=== PATIENT | female | born 1950 | race Caucasian/White ===

== ENCOUNTER → 2018-01-30 14:30 | Outpatient (CLI) | payer MEDICARE, OTHER, SELFPAY ==
--- NOTE | 2018-01-30 | DI.MG.S_ITS ---
BILATERAL DIGITAL SCREENING MAMMOGRAM 3D/2D WITH CAD: 01/30/2018 CLINICAL: Routine screening. Family history of breast cancer. Comparison is made to exams dated: 01/13/2017 mammogram, 02/05/2016 mammogram, and 02/03/2015 mammogram - [facility]. There are scattered fibroglandular elements in both breasts. Current study was also evaluated with a Computer Aided Detection (CAD) system. No significant masses, calcifications, or other findings are seen in either breast. There has been no significant interval change. IMPRESSION: NEGATIVE There is no mammographic evidence of malignancy. A 1 year screening mammogram is recommended.(01/31/2019) This exam was interpreted at Station ID: [id number]. NOTE: For mammograms, a report in lay terms will be sent to the patient. Approximately 15% of breast malignancies will not be visualized mammographically. In the management of a palpable breast mass, a negative mammogram must not discourage biopsy of a clinically suspicious lesion. Electronically Signed By: Saloni helm/bert:01/30/2018 15:56:16 letter sent: Normal Exam ACR BI-RADS Category 1: Negative [id number]
== END ==
PROVIDERS: PCP Nurse Practitioner; Visit Provider Family Medicine
DX: Z12.31 Encounter for screening mammogram for malignant neoplasm of breast (principal); Z80.3 Family history of malignant neoplasm of breast
CPT/HCPCS: 77063; 77067

== ENCOUNTER 2018-02-05 09:16 | Emergency (ER) | payer MEDICARE, OTHER, SELFPAY ==
[2018-02-05 09:22] VITALS: BP 205/66; PULSE 67; RESP 15; TEMP 36.5; O2SAT 98; BMI 24.0
--- NOTE | 2018-02-05 09:31 | ED.UPPEXIN ---
HPI - Extremity Injury (Upper) General Chief Complaint: Extremity Injury, Upper Stated Complaint: RIGHT ARM PAIN , HEMATOMA LT ARM Time Seen by Provider: 02/05/18 09:23 Source: patient Mode of arrival: ambulatory Limitations: no limitations History of Present Illness HPI narrative: Patient is a 67-year-old female who presents with left arm swelling. She says it has been there for about a month but it seemed to progressively gotten worse and got up her arm. She nursed in her hand initially she said all the wrinkles in her hand were gone and her skin looks good. But she continues to have swelling has not cause her much pain however last evening her upper arm was causing her lot of pain and she has more swelling. She has no numbness or tingling. She denies any chest pain. No injury. She is also noted to be quite hypertensive. She has had difficulty controlling her blood pressure and been on and off medications. She is recently back on lisinopril and hydrochlorothiazide. She increased her dose of lisinopril this morning she normally takes 5 mg but due to her elevated blood pressure he had a she does 10 mg. MD complaint: injury to: left Related Data Home Medications Medication Instructions Recorded Confirmed ASCORBIC ACID (#VITAMIN C) 1,500 mg PO Q DAY #0 tab 12/07/10 ASPIRIN (#ASPIRIN) 81 mg PO Q DAY #0 12/07/10 CHOLECALCIFEROL (VITAMIN D) 2,000 iu PO Q DAY #0 12/07/10 IBUPROFEN (#IBUPROFEN) 200 mg PO PRN #0 12/07/10 SELENIUM (#SELENIUM) 200 mcg PO Q DAY #0 12/07/10 Vitamin B Complex4 (#B COMPLEX) 1 tab PO Q DAY #0 12/07/10 [lysine] QDAY #0 12/07/10 COENZYME Q10/VITAMIN E (CO-Q-10 200 mg PO QDAY #0 02/02/13 100mg) Diphenhydramine Hydrochloride 25 mg PO HS #2 02/02/13 (BENADRYL) Glucosamine Sulfate (GLUCOSAMINE) 1,500 mg PO QDAY #0 02/02/13 [SAFFLOWER CLA] 3.2 mg Q DAY #0 04/29/16 [RED YEAST ] QDAY #0 12/10/16 hydralazine 37.5 mg PO QDAY #0 12/10/16 Previous Rx's Medication Instructions Recorded eszopiclone [Lunesta] 3 mg PO HSP PRN #30 tab 01/27/17 hydrochlorothiazide 25 mg PO BID #60 tab 01/27/17 Allergies Allergy/AdvReac Type Severity Reaction Status Date / Time zolpidem AdvReac Mild AGITATION Verified 02/05/18 09:22 verapamil AdvReac Unknown PAC'S Verified 02/05/18 09:22 Review of Systems Review of Systems All systems reviewed & are unremarkable except as noted in HPI and below Constitutional Denies chills, Denies fever(s), Denies lethargy and Denies weakness ENT Ears, Nose, Mouth, and Throat: Denies vertigo and Denies dizziness Cardiovascular Denies chest pain, Denies syncope, Denies irregular heart rhythm, Denies lightheadedness, Denies palpitations, Denies dyspnea, Denies dyspnea on exertion and Denies orthopnea Respiratory Denies cough, Denies dyspnea, Denies dyspnea on exertion and Denies wheezing Gastrointestinal Gastrointestinal: Denies abdominal pain, Denies change in bowel habits, Denies diarrhea, Denies nausea and Denies vomiting Genitourinary Denies hematuria, Denies flank pain, Denies urinary incontinence and Denies urinary urgency Musculoskeletal Reports as per HPI Integumentary/Breasts Denies pruritus, Denies erythema, Denies rash and Denies wounds Neurologic Denies vertigo, Denies dizziness, Denies syncope and Denies weakness Endocrine Denies palpitations Allergic/Immunologic Denies wheezing PFSH Medical History Hypertension (Acute) Surgical History Status post colonoscopy Family History Father Hypertension Mother Age: 90 Hypertension A-fib Pacemaker Social History Smoking Status: Never smoker alcohol intake: never substance use type: does not use Exam Initial Vital Signs Initial Vital Signs: Vital Signs Temperature 97.7 F 02/05/18 09:22 Pulse Rate 67 02/05/18 09:22 Respiratory Rate 15 02/05/18 09:22 Blood Pressure 205/66 H 02/05/18 09:22 Pulse Oximetry 98 02/05/18 09:22 GENERAL: Well-appearing, well-nourished and in no acute distress. HEENT: Head atraumatic,EOMI, pupils reactive, face symmetric CARDIOVASCULAR: Regular rate and rhythm without murmurs, rubs or gallops. RESPIRATORY: Breath sounds equal bilaterally, no wheezes rales or rhonchi. ABDOMEN: Soft, nontender. Normoactive bowel sounds all 4 quadrants. No guarding or rebound. EXTREMITIES: Normal range of motion, no clubbing or edema. Neurovascularly intact Left arm is swollen compared to the right arm. There is no erythema a distal radial pulse intact. Radial median and nerve intact. Sensation intact. NEUROLOGICAL: Alert and oriented x4.Normal gait and speech. Cranial nerves II through XII grossly intact. SKIN: Warm, dry, no laceration, no petechiae, no rashes or lesions. Course Orders Ordered: ED Orders 02/05/18 09:42 US periph venous up extrem lt Stat 02/05/18 09:43 XR chest 1V Stat EKG-12 Lead Stat 02/05/18 10:10 Complete Blood Count AUTO DIFF Stat Comprehensive Metabolic Panel Stat D Dimer Stat Lipase Stat Partial Thromboplastin Time Stat Prothrombin Time INR Stat Troponin & CK Cardiac Panel Stat Vital Signs - 8 hr 02/05/18 09:22 02/05/18 10:15 02/05/18 10:30 Temperature 97.7 F Pulse Rate 67 60 59 L Respiratory Rate 15 18 18 Blood Pressure 205/66 H Blood Pressure [Right Arm] 174/60 H 168/64 H Pulse Oximetry 98 99 100 02/05/18 11:30 Temperature Pulse Rate 62 Respiratory Rate 17 Blood Pressure Blood Pressure [Right Arm] 163/65 H Pulse Oximetry 99 MDM - Extremity Injury (Upper) Lab Data Attestation: I reviewed the patient's lab results. Result diagrams: 02/05/18 10:10 02/05/18 10:10 Lab Results 02/05/18 02/05/18 02/05/18 Range/Units 10:10 10:10 10:10 WBC 5.5 (4.5-11.0) X10^3/uL RBC 4.80 (4.0-5.2) X10^6/uL Hgb 12.8 (12.0-16.0) g/dL Hct 38.5 (36-46) % MCV 80.1 (80-100) fL MCH 26.7 (26-34) PG MCHC 33.3 (30-36) % RDW 12.8 (11.6-14.8) % Plt Count 250 (150-400) X10^3/uL Neut % (Auto) 68.9 (50-75) % Lymph % (Auto) 16.5 L (25-40) % [place] % (Auto) 7.9 (3-14) % Eos % (Auto) 5.6 H (2-4) % Baso % (Auto) 1.1 (0-2) % Neut # (Auto) 3800 (6476-0611) /uL PT 11.3 (10.1-12.7) SECONDS INR 1.0 (0.9-1.3) APTT 29 (26.4-36.2) SECONDS D-Dimer < 200 (<230) ng/mL Sodium 144 (137-145) mmol/L Potassium 4.1 (3.4-5.1) mmol/L Chloride 101 (98-107) mmol/L Carbon Dioxide 33 H (22-32) mmol/L BUN 29 H (7-17) mg/dL Creatinine 0.70 (0.52-1.04) mg/dL Estimated GFR > 60.0 (>60) mL/min BUN/Creatinine Ratio 41.4 H (6-22) Glucose 82 (80-110) mg/dL Calcium 9.3 (8.4-10.2) mg/dL Total Bilirubin 0.6 (0.2-1.3) mg/dL AST 32 (14-36) IU/L ALT 34 (9-52) IU/L Alkaline Phosphatase 62 (38-126) U/L Total Creatine Kinase 22 L (30-135) U/L CK-MB (CK-2) TNP CK-MB (CK-2) Rel Index TNP Troponin I < 0.012 (0.01-0.034) ng/mL Total Protein 6.9 (6.3-8.2) g/dL Albumin 4.2 (3.5-5.0) g/dL Globulin 2.7 (1.7-4.1) g/dL Albumin/Globulin Ratio 1.6 (1.0-2.8) Lipase 112 (23-300) U/L ECG Data Attestation: I personally reviewed and interpreted this ECG as follows: Prior ECG tracings: not available for review Interpretation: Normal sinus rhythm rate [address] changes no T-wave inversions, no priors to compare NM interval 230 QRS 91 QTC 429 MDM Narrative Medical decision making narrative: Patient has a negative ultrasound and negative D-dimer unlikely to be a blood clot. Strong radial pulse with good cap refill. Blood work within normal limits Chest x-ray and EKG normal. No sign of infection. Possible overuse causing swelling and inflammation. Recommend resting elevating and icing at this time with possible outpatient workup. Discharge Plan Departure Patient Disposition: Home Clinical Impression: Left arm swelling Discharge Date/Time: 02/05/18 12:05 Interventions: ED Discharge Assessment Last Done: 02/05/18 12:06 Instructions: DI for Peripheral Edema, Unilateral Activity Restrictions/Additional Instructions: *You have been diagnosed with left arm swelling *What to do: No evidence of blood clot, blood work within normal limits. Possible over worker strain. Recommend elevating icing. May require further outpatient testing. *Continue to take medications as directed Motrin 600 mg every 6-8 hours if needed for pain and swelling take only for a week *Follow up with your primary care provider in 2-3 days *Return to ER if you should have increasing swelling, numbness, tingling, shortness of breath, chest or any new, worsening or concerning symptoms Prescriptions: No Action ASPIRIN (#ASPIRIN) 81 mg PO Q DAY Qty: 0 RF: 0 CHOLECALCIFEROL (VITAMIN D) 2,000 iu PO Q DAY Qty: 0 RF: 0 ASCORBIC ACID (#VITAMIN C) 1,500 mg PO Q DAY Qty: 0 RF: 0 Vitamin B Complex4 (#B COMPLEX) 1 tab PO Q DAY Qty: 0 RF: 0 [lysine] QDAY Qty: 0 RF: 0 SELENIUM (#SELENIUM) 200 mcg PO Q DAY Qty: 0 RF: 0 IBUPROFEN (#IBUPROFEN) 200 mg PO PRN Qty: 0 RF: 0 Diphenhydramine Hydrochloride (BENADRYL) 25 mg PO HS Qty: 2 RF: 0 COENZYME Q10/VITAMIN E (CO-Q-10 100mg) 200 mg PO QDAY Qty: 0 RF: 0 Glucosamine Sulfate (GLUCOSAMINE) 1,500 mg PO QDAY Qty: 0 RF: 0 [SAFFLOWER CLA] 3.2 mg Q DAY Qty: 0 RF: 0 [RED YEAST ] QDAY Qty: 0 RF: 0 hydralazine 25 MG tablet 37.5 mg PO QDAY Qty: 0 RF: 0 eszopiclone [Lunesta] 3 MG tablet 3 mg PO HSP PRNQty: 30 RF: 1 hydrochlorothiazide 25 MG tablet 25 mg PO BID Qty: 60 RF: 4 Referrals: Yessica Hdez ARNP [Primary Care Provider] -
--- NOTE | 2018-02-05 09:42 | DI.US.S_ITS ---
PROCEDURE: US PERIPH VENOUS UP EXTREM LT INDICATIONS: swelling TECHNIQUE: Real-time imaging, as well as color and pulse Doppler interrogation, was performed of the left upper extremity deep veins from the inferior neck to the antecubital fossa. COMPARISON: None. FINDINGS: The internal jugular vein, visualized portions of the subclavian vein, axillary, and brachial veins are free of intraluminal thrombus. Where physically possible, the veins are normally compressible. Color and pulse Doppler demonstrate normal intraluminal flow, with expected phasicity and pulsatility. Additional scanning of the cephalic and basilic veins of the superficial system demonstrate normal compressibility, without thrombus. IMPRESSION: No ultrasound evidence of thrombosis of the imaged venous structures of the left upper extremity. Dictated by: Armando Pedersen M.D. on 02/05/2018 at 11:14 Approved by: Armando Pedersen M.D. on 02/05/2018 at 11:18
--- NOTE | 2018-02-05 09:43 | DI.RAD.S_ITS ---
PROCEDURE: XR CHEST 1V INDICATIONS: chest pain TECHNIQUE: One view of the chest was acquired. COMPARISON: None. FINDINGS: Surgical changes and devices: Cardiac pacer device with leads projecting the right atrium and right ventricle. Lungs and pleura: No pleural effusions or pneumothorax. Lungs are clear. Mediastinum: Mediastinal contours appear normal. Heart size is normal. Bones and chest wall: No suspicious bony lesions. Overlying soft tissues appear unremarkable. IMPRESSION: No acute cardiopulmonary disease. Dictated by: Armando Pedersen M.D. on 02/05/2018 at 10:02 Approved by: Armando Pedersen M.D. on 02/05/2018 at 10:04
[2018-02-05 10:15] VITALS: BP 174/60; PULSE 60; RESP 18; O2SAT 99
[2018-02-05 10:16] LABS: Add Manual Diff / Slide Review NO; Basophils Percent Auto 1.1 % (0-2); Eosinophils Percent Auto 5.6 % (2-4); Hematocrit 38.5 % (36-46); Hemoglobin 12.8 g/dL (12.0-16.0); Lymphocytes Percent Auto 16.5 % (25-40); Mean Corpuscular HGB Conc 33.3 % (30-36); Mean Corpuscular Hemoglobin 26.7 PG (26-34); Mean Corpuscular Volume 80.1 fL (80-100); Monocytes Percent Auto 7.9 % (3-14); Neutrophils Absolute Auto 3800 /uL (3000-5900); Neutrophils Percent Auto 68.9 % (50-75); Platelet Count 250 X10^3/uL (150-400); Red Cell Distribution Width 12.8 % (11.6-14.8); White Blood Cell Count 5.5 X10^3/uL (4.5-11.0)
[2018-02-05 10:20] LABS: HEMOLYSIS < 15 (0-50)
[2018-02-05 10:22] LABS: Prothrombin Time 11.3 SECONDS (10.1-12.7)
[2018-02-05 10:24] LABS: PTT Partial Thromboplastin Tim 29 SECONDS (26.4-36.2)
[2018-02-05 10:26] LABS: Alanine Aminotransferase 34 IU/L (9-52); Albumin 4.2 g/dL (3.5-5.0); Albumin Globulin Ratio 1.6 (1.0-2.8); Alkaline Phosphatase 62 U/L (38-126); Aspartate Aminotransferase 32 IU/L (14-36); BUN Creatinine Ratio 41.4 (6-22); Bilirubin Total 0.6 mg/dL (0.2-1.3); Blood Urea Nitrogen 29 mg/dL (7-17); Calcium 9.3 mg/dL (8.4-10.2); Carbon Dioxide 33 mmol/L (22-32); Chloride 101 mmol/L (98-107); Creatine Kinase 22 U/L (30-135); Estimated Glomerular Filt Rate > 60.0 mL/min (>60); Globulin 2.7 g/dL (1.7-4.1); Glucose 82 mg/dL (80-110); Lipase 112 U/L (23-300); Potassium 4.1 mmol/L (3.4-5.1); Sodium 144 mmol/L (137-145); Total Protein 6.9 g/dL (6.3-8.2)
[2018-02-05 10:30] VITALS: BP 168/64; PULSE 59; PULSE 60; RESP 16; RESP 18; O2SAT 100; O2SAT 99
[2018-02-05 10:39] LABS: D Dimer < 200 ng/mL (<230); Troponin I < 0.012 ng/mL (0.01-0.034)
[2018-02-05 11:30] VITALS: BP 163/65; PULSE 62; RESP 17; O2SAT 99
== END 2018-02-05 12:05 | disposition home or self-care (01) ==
PROVIDERS: Emergency Provider Emergency Medicine; PCP Nurse Practitioner
DX: M79.89 Other specified soft tissue disorders (principal)
CPT/HCPCS: 36591; 71045; 80053; 82550; 83690; 84484; 85025; 85379; 85610; 85730; 93005; 93971; 99283; 99285

== ENCOUNTER → 2019-02-01 15:36 | Outpatient (CLI) | payer MEDICARE, OTHER, SELFPAY | PROVIDERS: PCP Nurse Practitioner; Visit Provider Nurse Practitioner | DX: Z12.31 Encounter for screening mammogram for malignant neoplasm of breast (principal); Z53.9 Procedure and treatment not carried out, unspecified reason | CPT/HCPCS: 77063; 77067 ==

== ENCOUNTER 2019-02-03 10:15 | Emergency (ER) | payer MEDICARE, OTHER, SELFPAY ==
[2019-02-03] VITALS (8 sets, daily range): BP systolic 129–191; BP diastolic 47–66; PULSE 59–60; RESP 15–21; TEMP 36.7; O2SAT 97–100
--- NOTE | 2019-02-03 10:19 | DI.RAD.S_ITS ---
PROCEDURE: XR CHEST 1V INDICATIONS: chest pain TECHNIQUE: One view of the chest was acquired. COMPARISON: [facility], CR, XR CHEST 1V, 02/05/2018, 9:50. FINDINGS: Surgical changes and devices: There is a left chest wall dual-lead pacemaker redemonstrated. Lungs and pleura: Visualized lungs are clear. No pleural effusions or pneumothorax. Mediastinum: Mediastinal contours appear normal. Heart size is normal. Bones and chest wall: No suspicious bony lesions. Overlying soft tissues appear unremarkable. IMPRESSION: 1. No acute cardiopulmonary disease. Dictated by: Lloyd Zuñiga M.D. on 02/03/2019 at 9:59 Approved by: Lloyd Zuñiga M.D. on 02/03/2019 at 9:59
--- NOTE | 2019-02-03 10:34 | ED.CHESTPAIN ---
HPI - Chest Pain General Chief Complaint: Chest Pain Stated Complaint: chest pain, now resolved. Time Seen by Provider: 02/03/19 10:20 Source: patient Mode of arrival: Ambulatory Limitations: no limitations History of Present Illness HPI narrative: Patient is a 68-year-old female who has a history of hypertension and pacemaker recently new diagnosis of atrial fibrillation. Today she presents now with resolved chest pain. She said last evening she noted some right-sided chest pain lasted about an hour or so on has completely resolved. She did not notice it this morning. She has no shortness of breath no heart palpitations. 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 She started Eliquis about 10 days ago. Her blood pressure has been difficult to control and she is only tolerated certain medications. She was was started on clonidine 0.1 mg and that has increased to 0.2 mg she is on patches and hydrochlorothiazide. She denies any headache. MD complaint: chest pain Onset: during rest Pain location: substernal Related Data Home Medications Medication Instructions Recorded Confirmed ASCORBIC ACID (#VITAMIN C) 1,500 mg PO Q DAY #0 tab 12/07/10 08/21/18 ASPIRIN (#ASPIRIN) 81 mg PO Q DAY #0 12/07/10 08/21/18 CHOLECALCIFEROL (VITAMIN D) 2,000 iu PO Q DAY #0 12/07/10 08/21/18 IBUPROFEN (#IBUPROFEN) 200 mg PO PRN #0 12/07/10 08/21/18 Vitamin B Complex4 (#B COMPLEX) 1 tab PO Q DAY #0 12/07/10 08/21/18 [lysine] QDAY #0 12/07/10 08/21/18 Diphenhydramine Hydrochloride 25 mg PO HS #2 02/02/13 08/21/18 (BENADRYL) Glucosamine Sulfate (GLUCOSAMINE) 1,500 mg PO QDAY #0 02/02/13 08/21/18 [RED YEAST ] QDAY #0 12/10/16 08/21/18 flaxseed oil MISC 08/21/18 08/21/18 lisinopril 20 1 tab PO DAILY 08/21/18 08/21/18 mg-hydrochlorothiazide 25 mg tablet omega-3 fatty acids 1,000 mg 2,000 mg PO DAILY 08/21/18 08/21/18 capsule soy isofla-blk cohosh-mag bark 155 cap PO cap 10/05/18 10/05/18 mg capsule Allergies Allergy/AdvReac Type Severity Reaction Status Date / Time zolpidem AdvReac Mild AGITATION Verified 08/21/18 15:41 verapamil AdvReac Unknown PAC'S Verified 08/21/18 15:41 Review of Systems Review of Systems Narrative: GENERAL: Denies chills, fatigue, malaise, fever, sweats, travel HEENT: Denies sinus pain, ear pain, sore throat, difficulty swallowing, neck pain RESPIRATORY: Denies dyspnea, cough, wheezing, hemoptysis, sputum. CARDIOVASCULAR: See HPI GASTROINTESTINAL: Denies nausea, vomiting, abdominal pain, diarrhea, constipation, melena. : Denies dysuria, frequency, incontinence, hematuria, urinary retention, flank pain. MUSCULOSKELETAL: Denies weakness, joint pain, or bony pain SKIN: No rash, no erythema, no pruritus NEUROLOGIC: Denies weakness, dizziness, headache, numbness, change in speech, confusion PSYCHIATRIC: No concerning psychosocial issues. 12 point review of systems is negative except for those stated above and HPI PFSH Medical History Atrial fibrillation (Acute) Hypertension (Acute) Pacemaker (Acute) Surgical History Status post colonoscopy Family History Father Hypertension Mother Age: 91 Hypertension A-fib Pacemaker Social History Smoking Status: Never smoker alcohol intake: never substance use type: does not use Family History Father Hypertension Mother Age: 91 Hypertension A-fib Pacemaker Social History Smoking Status: Never smoker alcohol intake: never substance use type: does not use Exam Initial Vital Signs Initial Vital Signs: Vital Signs Temperature 98.1 F 02/03/19 10:16 Pulse Rate 60 02/03/19 10:16 Respiratory Rate 18 02/03/19 10:16 Blood Pressure 191/49 H 02/03/19 10:16 Pulse Oximetry 98 02/03/19 10:16 GENERAL: Well-appearing, well-nourished and in no acute distress. HEENT: Head atraumatic,EOMI, pupils reactive, face symmetric, moist mucous membranes CARDIOVASCULAR: Regular rate and rhythm without murmurs, rubs or gallops. RESPIRATORY: Breath sounds equal bilaterally, no wheezes rales or rhonchi. ABDOMEN: Soft, nontender. Normoactive bowel sounds all 4 quadrants. No guarding or rebound. : No CVA tenderness EXTREMITIES: Normal range of motion, no clubbing or edema. Neurovascularly intact NEUROLOGICAL: Alert and oriented x4.Normal gait and speech. SKIN: Warm, dry, no laceration, no petechiae, no rashes or lesions. Scores HEART Score Heart Score history: Slightly Suspicious Heart Score EKG: Normal Heart Score Age: > or = 65 years old Heart Score risk factors: 1-2 risk factors Heart Score troponin: < or = to normal limit Heart Score Total: 3 Course Orders Ordered: ED Orders 02/03/19 10:19 XR chest 1V Stat EKG-12 Lead Stat 02/03/19 11:16 Complete Blood Count AUTO DIFF Stat Comprehensive Metabolic Panel Stat Lipase Stat Partial Thromboplastin Time Stat Prothrombin Time INR Stat Troponin & CK Cardiac Panel Stat 02/03/19 14:02 Troponin I Stat Vital Signs Vital signs: Vital Signs - 8 hr 02/03/19 10:16 02/03/19 11:09 02/03/19 11:30 Temperature 98.1 F Pulse Rate 60 60 60 Respiratory Rate 18 18 19 Blood Pressure 191/49 H Blood Pressure [Right Arm] 137/51 L 137/52 L Pulse Oximetry 98 100 02/03/19 12:00 02/03/19 12:15 02/03/19 13:00 Temperature Pulse Rate 60 60 60 Respiratory Rate 20 18 15 Blood Pressure Blood Pressure [Right Arm] 156/66 H 156/66 H 153/49 H Pulse Oximetry 100 97 100 02/03/19 14:30 02/03/19 15:00 Temperature Pulse Rate 59 L 60 Respiratory Rate 19 21 Blood Pressure Blood Pressure [Right Arm] 129/47 L Pulse Oximetry 99 100 MDM - Chest Pain Lab Data Attestation: I reviewed the patient's lab results. Result diagrams: 02/03/19 11:16 02/03/19 11:16 Labs: Lab Results 02/03/19 02/03/19 02/03/19 Range/Units 11:16 11:16 11:16 WBC 4.8 (4.5-11.0) X10^3/uL RBC 4.67 (4.0-5.2) X10^6/uL Hgb 12.4 (12.0-16.0) g/dL Hct 37.7 (36-46) % MCV 80.7 (80-100) fL MCH 26.5 (26-34) PG MCHC 32.8 (30-36) % RDW 12.9 (11.6-14.8) % Plt Count 212 (150-400) X10^3/uL Neut % (Auto) 67.8 (50-75) % Lymph % (Auto) 16.7 L (25-40) % [place] % (Auto) 9.0 (3-14) % Eos % (Auto) 5.9 H (2-4) % Baso % (Auto) 0.6 (0-2) % Neut # (Auto) 3300 (1376-4954) /uL Lymph # (Auto) 800 L (1220-7520) /uL [place] # (Auto) 400 (0-900) /uL Eos # (Auto) 300 (0-450) /uL Baso # (Auto) 0 (0-100) /uL PT 11.6 (10.1-12.7) SECONDS INR 1.0 (0.9-1.3) APTT 35 D (26.4-36.2) SECONDS Sodium 139 (137-145) mmol/L Potassium 4.0 (3.4-5.1) mmol/L Chloride 102 (98-107) mmol/L Carbon Dioxide 28 (22-32) mmol/L BUN 29 H (7-17) mg/dL Creatinine 0.70 (0.52-1.04) mg/dL Estimated GFR > 60.0 (>60) mL/min BUN/Creatinine Ratio 41.4 H (6-22) Glucose 78 L (80-110) mg/dL Calcium 9.3 (8.4-10.2) mg/dL Total Bilirubin 0.9 (0.2-1.3) mg/dL AST 38 H (14-36) IU/L ALT 37 (9-52) IU/L Alkaline Phosphatase 65 (38-126) U/L Total Creatine Kinase 26 L (30-135) U/L CK-MB (CK-2) TNP CK-MB (CK-2) Rel Index TNP Troponin I 0.019 (0.01-0.034) ng/mL Total Protein 7.0 (6.3-8.2) g/dL Albumin 4.2 (3.5-5.0) g/dL Globulin 2.8 (1.7-4.1) g/dL Albumin/Globulin Ratio 1.5 (1.0-2.8) Lipase 123 (23-300) U/L 02/03/19 Range/Units 14:02 WBC (4.5-11.0) X10^3/uL RBC (4.0-5.2) X10^6/uL Hgb (12.0-16.0) g/dL Hct (36-46) % MCV (80-100) fL MCH (26-34) PG MCHC (30-36) % RDW (11.6-14.8) % Plt Count (150-400) X10^3/uL Neut % (Auto) (50-75) % Lymph % (Auto) (25-40) % [place] % (Auto) (3-14) % Eos % (Auto) (2-4) % Baso % (Auto) (0-2) % Neut # (Auto) (9525-8292) /uL Lymph # (Auto) (8059-2539) /uL [place] # (Auto) (0-900) /uL Eos # (Auto) (0-450) /uL Baso # (Auto) (0-100) /uL PT (10.1-12.7) SECONDS INR (0.9-1.3) APTT (26.4-36.2) SECONDS Sodium (137-145) mmol/L Potassium (3.4-5.1) mmol/L Chloride (98-107) mmol/L Carbon Dioxide (22-32) mmol/L BUN (7-17) mg/dL Creatinine (0.52-1.04) mg/dL Estimated GFR (>60) mL/min BUN/Creatinine Ratio (6-22) Glucose (80-110) mg/dL Calcium (8.4-10.2) mg/dL Total Bilirubin (0.2-1.3) mg/dL AST (14-36) IU/L ALT (9-52) IU/L Alkaline Phosphatase (38-126) U/L Total Creatine Kinase (30-135) U/L CK-MB (CK-2) CK-MB (CK-2) Rel Index Troponin I 0.016 (0.01-0.034) ng/mL Total Protein (6.3-8.2) g/dL Albumin (3.5-5.0) g/dL Globulin (1.7-4.1) g/dL Albumin/Globulin Ratio (1.0-2.8) Lipase (23-300) U/L Imaging Data Chest x-ray: Radiologist's impression: PROCEDURE: XR CHEST 1V INDICATIONS: chest pain TECHNIQUE: One view of the chest was acquired. COMPARISON: [facility], , XR CHEST 1V, 02/05/2018, 9:50. FINDINGS: Surgical changes and devices: There is a left chest wall dual-lead pacemaker redemonstrated. Lungs and pleura: Visualized lungs are clear. No pleural effusions or pneumothorax. Mediastinum: Mediastinal contours appear normal. Heart size is normal. Bones and chest wall: No suspicious bony lesions. Overlying soft tissues appear unremarkable. IMPRESSION: 1. No acute cardiopulmonary disease. Dictated by: Lloyd Zuñiga M.D. on 02/03/2019 at 9:59 ECG Data Attestation: I personally reviewed and interpreted this ECG as follows: Prior ECG tracings: available for review Interpretation: Normal sinus rhythm paced rate 60 p.r. interval [address] changes similar to prior [facility] Narrative Medical decision making narrative: Patient troponin still within the negative range will repeat 3 hour troponin. Patient continues to be asymptomatic in the emergency department. Repeat troponin is slightly lower. I did discuss with her stress test and echocardiogram which can be arranged with her vocational counselor or her PCP. I discussed all findings with the patient and has been, Education has been performed regarding treatment plan, diagnosis, warning signs and symptoms and all concerns have been addressed. Verbally agree with and understood all of the above. Discharge Plan Departure Patient Disposition: Home Clinical Impression: Atypical chest pain Discharge Date/Time: 02/03/19 15:00 Instructions: DI for Atypical Chest Pain Activity Restrictions/Additional Instructions: *You have been diagnosed with atypical chest pain *What to do: At this time blood work and chest x-ray are reassuring. However please discuss further workup with her primary care provider or vocational counselor. A stress test and/or echocardiogram may be indicated. *Continue to take medications as directed *Follow up with your primary care provider in 2-3 days *Return to ER if you should have increasing shortness of breath, chest pain, palpitation or any new, worsening or concerning symptoms Prescriptions: No Action ASPIRIN (#ASPIRIN) 81 mg PO Q DAY Qty: 0 RF: 0 CHOLECALCIFEROL (VITAMIN D) 2,000 iu PO Q DAY Qty: 0 RF: 0 ASCORBIC ACID (#VITAMIN C) 1,500 mg PO Q DAY Qty: 0 RF: 0 Vitamin B Complex4 (#B COMPLEX) 1 tab PO Q DAY Qty: 0 RF: 0 [lysine] QDAY Qty: 0 RF: 0 IBUPROFEN (#IBUPROFEN) 200 mg PO PRN Qty: 0 RF: 0 Diphenhydramine Hydrochloride (BENADRYL) 25 mg PO HS Qty: 2 RF: 0 Glucosamine Sulfate (GLUCOSAMINE) 1,500 mg PO QDAY Qty: 0 RF: 0 [RED YEAST ] QDAY Qty: 0 RF: 0 lisinopril-hydrochlorothiazide 20-25 mg tablet 1 tab PO DAILY RF: 0 flaxseed oil MISC RF: 0 omega-3 fatty acids [Fish Oil Concentrate] 1,000 mg capsule 2,000 mg PO DAILY RF: 0 [place] 155 mg capsule PO RF: 0 Referrals: Yessica Hdez ARNP [Primary Care Provider] -
[2019-02-03 11:25] LABS: Add Manual Diff / Slide Review NO; Basophils Absolute Auto 0 /uL (0-100); Basophils Percent Auto 0.6 % (0-2); Eosinophils Absolute Auto 300 /uL (0-450); Eosinophils Percent Auto 5.9 % (2-4); Hematocrit 37.7 % (36-46); Hemoglobin 12.4 g/dL (12.0-16.0); Lymphocytes Absolute Auto 800 /uL (1100-4500); Lymphocytes Percent Auto 16.7 % (25-40); Mean Corpuscular HGB Conc 32.8 % (30-36); Mean Corpuscular Hemoglobin 26.5 PG (26-34); Mean Corpuscular Volume 80.7 fL (80-100); Monocytes Absolute Auto 400 /uL (0-900); Neutrophils Absolute Auto 3300 /uL (1500-7000); Neutrophils Percent Auto 67.8 % (50-75); Platelet Count 212 X10^3/uL (150-400); Red Blood Cell Count 4.67 X10^6/uL (4.0-5.2); Red Cell Distribution Width 12.9 % (11.6-14.8); White Blood Cell Count 4.8 X10^3/uL (4.5-11.0)
[2019-02-03 11:51] LABS: Prothrombin Time 11.6 SECONDS (10.1-12.7)
[2019-02-03 11:54] LABS: PTT Partial Thromboplastin Tim 35 SECONDS (26.4-36.2)
[2019-02-03 11:59] LABS: Alanine Aminotransferase 37 IU/L (9-52); Albumin 4.2 g/dL (3.5-5.0); Albumin Globulin Ratio 1.5 (1.0-2.8); Alkaline Phosphatase 65 U/L (38-126); Aspartate Aminotransferase 38 IU/L (14-36); BUN Creatinine Ratio 41.4 (6-22); Bilirubin Total 0.9 mg/dL (0.2-1.3); Blood Urea Nitrogen 29 mg/dL (7-17); Calcium 9.3 mg/dL (8.4-10.2); Carbon Dioxide 28 mmol/L (22-32); Chloride 102 mmol/L (98-107); Creatine Kinase 26 U/L (30-135); Estimated Glomerular Filt Rate > 60.0 mL/min (>60); Globulin 2.8 g/dL (1.7-4.1); Glucose 78 mg/dL (80-110); HEMOLYSIS < 15 (0-50); Lipase 123 U/L (23-300); Sodium 139 mmol/L (137-145)
[2019-02-03 12:11] LABS: Troponin I 0.019 ng/mL (0.01-0.034)
[2019-02-03 14:33] LABS: Troponin I 0.016 ng/mL (0.01-0.034)
== END 2019-02-03 15:00 | disposition home or self-care (01) ==
PROVIDERS: Emergency Provider Emergency Medicine; PCP Nurse Practitioner
DX: R07.89 Other chest pain (principal); Z95.0 Presence of cardiac pacemaker; Z79.01 Long term (current) use of anticoagulants
CPT/HCPCS: 36415; 71045; 80053; 82550; 83690; 84484; 85025; 85610; 85730; 93005; 93010; 99283; 99285

== ENCOUNTER → 2019-02-08 08:04 | Outpatient (CLI) | payer MEDICARE, OTHER, SELFPAY ==
--- NOTE | 2019-02-08 | DI.US.S_ITS ---
ULTRASOUND OF RIGHT BREAST: 02/08/2019 CLINICAL: Patient returns today to evaluate a density in the right breast. Comparison is made to exams dated: 02/08/2019 mammogram, 01/30/2018 mammogram, 01/13/2017 mammogram, 02/05/2016 mammogram, and 02/03/2015 mammogram - [facility]. Real-time ultrasound of the right breast was performed. Reid scale images of the real-time examination were reviewed. No significant abnormalities were seen sonographically in the right breast. IMPRESSION: BENIGN There is no sonographic evidence of malignancy. There is no abnormality seen in the right breast to correspond with the area of clinical concern and nipple abnormality in the sub-areolar and anterior depth, however, clinical followup is recommended for persistent symptoms. A 1 year screening mammogram is recommended. This exam was interpreted at Station ID: [id number]. Electronically Signed By: Alejandro Henderson M.D. aty/:02/08/2019 11:15:31 letter sent: Normal Exam Ultrasound BI-RADS: 2 Benign
--- NOTE | 2019-02-08 | DI.MG.S_ITS ---
BILATERAL DIGITAL DIAGNOSTIC MAMMOGRAM 3D/2D: 02/08/2019 CLINICAL: Left breast lump. Right nipple deviation. Family history of breast cancer. Comparison is made to exams dated: 01/30/2018 mammogram, 01/13/2017 mammogram, and 02/05/2016 mammogram - [facility]. The tissue of both breasts is extremely dense, which lowers the sensitivity of mammography. No significant masses, calcifications, or other findings are seen in either breast. IMPRESSION: INCOMPLETE: NEEDS ADDITIONAL IMAGING EVALUATION There is no abnormality seen in the left breast to correspond with the area of clinical concern and palpable abnormality indicated by triangular marker in the anterior depth in the upper outer quadrant, however, ultrasound is recommended. There is no abnormality seen in the right breast to correspond with the area of clinical concern and nipple abnormality in the sub-areolar and anterior depth, however, ultrasound is recommended. The recommended breast ultrasound is scheduled to immediately follow this examination. This exam was interpreted at Station ID: [id number]. NOTE: For mammograms, a report in lay terms will be sent to the patient. Approximately 15% of breast malignancies will not be visualized mammographically. In the management of a palpable breast mass, a negative mammogram must not discourage biopsy of a clinically suspicious lesion. Electronically Signed By: Alejandro Henderson M.D. aty/:02/08/2019 08:50:26 ACR BI-RADS Category 0: Incomplete 3340F
--- NOTE | 2019-02-08 | DI.US.S_ITS ---
ULTRASOUND OF LEFT BREAST: 02/08/2019 CLINICAL: Palpable left breast lump. Comparison is made to exams dated: 02/08/2019 mammogram, 01/30/2018 mammogram, 01/13/2017 mammogram, 02/05/2016 mammogram, and 02/03/2015 mammogram - [facility]. Color flow and real-time ultrasound of the left breast were performed. Reid scale images of the real-time examination were reviewed. No significant abnormalities were seen sonographically in the left breast. There is a area of dense fibroglandular tissue and intersecting [place]opers ligaments that correlated with area of palpable concern without a definable mass or associated disturbed parenchymal echotexture. A small vessels courses in close vicinity but no definite area of increased vascularity. IMPRESSION: PROBABLY BENIGN There is no abnormality seen in the left breast to correspond with the area of clinical concern and palpable abnormality at 1:30 o'clock in the anterior depth. There is an area of dense fibroglandular tissue and intersecting Coopers ligaments that correlated with area of palpable concern without a definable mass or associated disturbed parenchymal echotexture. A small vessels courses in close vicinity but no definite area of increased vascularity. This is a probably benign finding. Recommend continued clinical surveillance. A follow-up left mammogram and an ultrasound in 6 months is recommended to demonstrate stability. The patient will return sooner if development of any clinically suspicious findings in the area of concern. This exam was interpreted at Station ID: [id number]. Electronically Signed By: Alejandro wolfy/:02/08/2019 11:22:12 letter sent: Followup Recommended Ultrasound BI-RADS: 3 Probably benign
== END ==
PROVIDERS: PCP Nurse Practitioner; Visit Provider Nurse Practitioner
DX: R92.8 Other abnormal and inconclusive findings on diagnostic imaging of breast (principal); N63.20 Unspecified lump in the left breast, unspecified quadrant; N64.89 Other specified disorders of breast; Z80.3 Family history of malignant neoplasm of breast
CPT/HCPCS: 76642; 77066; G0279

== ENCOUNTER → 2019-09-20 11:53 | Outpatient (CLI) | payer MEDICARE, OTHER, SELFPAY ==
--- NOTE | 2019-09-20 | DI.US.S_ITS ---
ULTRASOUND OF LEFT BREAST: 09/20/2019 CLINICAL: 6 month follow-up. Comparison is made to exams dated: 09/20/2019 mammogram, 02/08/2019 ultrasound, 02/08/2019 mammogram, 01/30/2018 mammogram, and 01/13/2017 mammogram - [facility]. Ultrasound of the left breast was performed on the area of interest. Reid scale images of the real-time examination were reviewed. IMPRESSION: NEGATIVE There is no sonographic evidence of malignancy. There is no abnormality seen in the left breast to correspond with the area previously palpated by the referring clinician. This region most likely represents dense normal fibroglandular tissue, however, clinical followup is recommended. A 1 year screening mammogram is recommended. This exam was interpreted at Station ID: [id number]. Electronically Signed By: Saloni helm/:09/20/2019 13:00:43 letter sent: Normal Exam Ultrasound BI-RADS: 1 Negative
--- NOTE | 2019-09-20 | DI.MG.S_ITS ---
UNILATERAL LEFT DIGITAL DIAGNOSTIC MAMMOGRAM 3D/2D SHORT-TERM FOLLOW-UP: 09/20/2019 CLINICAL: Left short term follow up. Comparison is made to exams dated: 02/08/2019 ultrasound, 02/08/2019 ultrasound, 01/30/2018 mammogram, 01/13/2017 mammogram, and 02/08/2019 mammogram - [facility]. The tissue of left breast is extremely dense, which lowers the sensitivity of mammography. No significant masses, calcifications, or other findings are seen in the breast. IMPRESSION: INCOMPLETE: NEEDS ADDITIONAL IMAGING EVALUATION There is no mammographic abnormality seen in the left breast to correspond with the previously described palpable abnormality, however, ultrasound is recommended to ensure stability of the previously imaged region on the study dated 02/08/19 and will be performed immediately following this exam. This exam was interpreted at Station ID: [id number]. NOTE: For mammograms, a report in lay terms will be sent to the patient. Approximately 15% of breast malignancies will not be visualized mammographically. In the management of a palpable breast mass, a negative mammogram must not discourage biopsy of a clinically suspicious lesion. Electronically Signed By: Saloni helm/:09/20/2019 12:32:39 ACR BI-RADS Category 0: Incomplete 3340F
== END ==
PROVIDERS: PCP Nurse Practitioner; Referring Provider Nurse Practitioner; Visit Provider Nurse Practitioner
DX: R92.8 Other abnormal and inconclusive findings on diagnostic imaging of breast (principal)
CPT/HCPCS: 76642; 77065; G0279

== ENCOUNTER → 2020-09-22 13:14 | Outpatient (CLI) | payer MEDICARE, OTHER, SELFPAY ==
--- NOTE | 2020-09-22 | DI.MG.S_ITS ---
BILATERAL DIGITAL SCREENING MAMMOGRAM 3D/2D WITH CAD: 09/22/2020 CLINICAL: Routine screening. Family history of breast cancer. Comparison is made to exams dated: 09/20/2019 mammogram, 02/08/2019 mammogram, and 01/30/2018 mammogram - [facility]. The tissue of both breasts is extremely dense, which lowers the sensitivity of mammography. Current study was also evaluated with a Computer Aided Detection (CAD) system. No significant masses, calcifications, or other findings are seen in either breast. There has been no significant interval change. IMPRESSION: NEGATIVE There is no mammographic evidence of malignancy. A 1 year screening mammogram is recommended. This exam was interpreted at Station ID: [id number]. NOTE: For mammograms, a report in lay terms will be sent to the patient. Approximately 15% of breast malignancies will not be visualized mammographically. In the management of a palpable breast mass, a negative mammogram must not discourage biopsy of a clinically suspicious lesion. Electronically Signed By: Ramón Landaverde M.D., jr/bert:09/23/2020 11:33:52 letter sent: Normal Exam ACR BI-RADS Category 1: Negative 3341F
== END ==
PROVIDERS: PCP Nurse Practitioner; Referring Provider Nurse Practitioner; Visit Provider Nurse Practitioner
DX: Z12.31 Encounter for screening mammogram for malignant neoplasm of breast (principal); Z80.3 Family history of malignant neoplasm of breast
CPT/HCPCS: 77063; 77067

== ENCOUNTER → 2022-01-18 14:10 | Outpatient (CLI) | payer MEDICARE, OTHER, SELFPAY ==
[2022-01-18 15:23] LABS: COVID19 -Nasal RAPID Negative (Negative)
--- NOTE | 2022-01-22 08:36 | DI.NM.S_ITS ---
DATE OF SERVICE: PROCEDURE PERFORMED: Exercise stress test. INDICATION: Fatigue, paroxysmal AFib, hypertension, chronotropic incompetence. CARDIAC STRESS: The patient underwent exercise stress test under the supervision of an attending staff. She walked on Pantera protocol for 9 minutes, 01 seconds, achieved maximum heart rate of 143, which was 95 percent of target heart rate. Resting blood pressure 180/78 mmHg. Peak blood pressure 220/86 mmHg. In recovery, blood pressure decreased to 170/78 mmHg. Baseline rhythm was sinus with possible LVH and up to 0.[address]-depression in inferior leads and leads V4 to V6. During stress, those ST changes got a little bit more pronounced and up to 1 mm horizontal/downsloping ST-depression in those leads. Baseline rhythm was sinus and at rest, the patient has some PVCs and occasional ventricular couplets. At peak exercise, PVCs got suppressed, but reappeared in recovery with one episode of one episode of three-beat run of nonsustained ventricular tachycardia. No sustained ventricular tachycardia. The patient did not have any chest pain. Had some moderate shortness of breath. The patient did not take lisinopril prior to stress test. She was advised to go home and get her blood pressure medication, as usual. CONCLUSION: Exercise stress test is inconclusive for diagnosis of coronary artery disease due to baseline ST-segment changes, as stated above. However, the patient has excellent exercise tolerance. She walked on Pantera protocol for 9 minutes and 01 seconds. No evidence of chronotropic incompetence. She achieved 95 percent of target heart rate. Hypertensive blood pressure response. Functional aerobic impairment -52 percent and 10.1 metabolic equivalents of workload. No anginal symptoms. Overall, not a high risk exercise stress test. Consider repeating exercise stress test with imaging modality, like stress echo for further coronary artery disease diagnosis and risk stratification. Penny Thorne - CITLALLI/karl/dae doc#: [id number]/job#: [id number] dd: 01/18/2022 17:20:00 dt: 01/18/2022 17:43:00 DICTATING MD/COPIES TO: Ronal Ford MD COPIES MNE: MAGALYS;
== END ==
PROVIDERS: PCP Nurse Practitioner; Referring Provider Internal Medicine; Visit Provider Internal Medicine
DX: I45.89 Other specified conduction disorders (principal); R53.83 Other fatigue; I48.0 Paroxysmal atrial fibrillation; I10 Essential (primary) hypertension; Z20.822 Contact with and (suspected) exposure to COVID-19
CPT/HCPCS: 87635; 93017